=== PATIENT | male | born 1985 | race Caucasian/White ===

== ENCOUNTER 2023-11-07 23:22 | Emergency (ER) | payer BC ==
[2023-11-07 23:44] LABS: BASE EXCESS ARTERIAL 1.7 mm/L; BICARBONATE,ARTERIAL 23.3 mmol/L (22.0-26.0); CARBOXYHEMOGLOBIN 1.8 % (0.0-1.6); METHEMOGLOBIN 0.9 %; O2 SATURATION ARTERIAL 98.4 % (95.0-98.0); OXYHEMOGLOBIN 95.7 %; PCO2 ARTERIAL 29.6 mmHg (35.0-42.0); PO2 ARTERIAL 98.2 mmHg (75.0-100.0); TOTAL HEMOGLOBIN 15.8 g/dL (13.5-18.0)
[2023-11-08] MEDS: LORazepam 1 MG Tab PO ONE (00:42)
[2023-11-08] MEDS: LORazepam 2 MG/ML SDV IVPUSH ONE (00:42)
== END 2023-11-08 01:11 | disposition home or self-care (01) ==
LOC: JP.ED 23:22
DX: F45.8 Other somatoform disorders (principal)
CPT/HCPCS: 36600; 82803; 96374; 99284; A9270; J2060